=== PATIENT | female | born 1960 | race Caucasian/White ===

== ENCOUNTER → 2020-11-07 | Outpatient (CLI) | payer OTHER ==
--- NOTE | 2020-11-07 16:08 | RAD ---
EXAM: 3 Views Right Shoulder DATE: 11/07/2020 1:58 PM INDICATION: Reason: right shoulder pain, unable to lift arm up / Spl. Instructions: / History: COMPARISON: No Prior FINDINGS: There is no evidence for acute fracture or dislocation. AC joint is congruent. Severe right shoulder joint osteoarthritis with joint space effacement and bulky proliferative change. Humeral head is not high riding. IMPRESSION: 1. No acute fracture or dislocation. 2. Severe right shoulder joint osteoarthritis. Electronically signed by: Álvaro Avila MD (11/07/2020 4:06 PM) THANG
== END ==
LOC: RAD 13:35
PROVIDERS: ATTEND Orthopaedic Surgery
DX: M19.011 Primary osteoarthritis, right shoulder (principal)
CPT/HCPCS: 73030